=== PATIENT | male | born 1980 | race Caucasian/White ===

== ENCOUNTER 2017-10-20 10:05 | Emergency (ER) | END 2017-10-20 11:29 | disposition home or self-care (01) ==

== ENCOUNTER 2018-09-26 13:01 | Emergency (ER) | payer SELFPAY ==
[~2018-09-26] VITALS: Ht 175.3 cm; Wt 73.5 kg
[~2018-09-26 13:01] MED LIST: CEPH-443 PO; IBUP-1542 PO
[2018-09-26 13:16] VITALS: BP 130/79; PULSE 88; RESP 16; Ht 175.3 cm; Wt 73.5 kg
[2018-09-26] MEDS ORDERED: ONDANSETRON 4 MG INJ IV STA (13:31)
[2018-09-26] MEDS ORDERED: SOD CHLORIDE 0.9% 1,000 ML IV STA (13:31)
[2018-09-26] MEDS ORDERED: KETOROLAC 30 MG INJ IV STA (13:31)
[2018-09-26] MEDS ORDERED: morphine 4 MG/ML VIAL IV STA (13:31)
--- NOTE | 2018-09-26 13:37 | ERD ---
ER Documentation Chief Complaint Chief Complaint lower back pain since yesterday HPI 37-year-old male with history of kidney stones presents with complaint of left flank pain starting yesterday. Patient states that the pain is identical to the pain he experienced when he had a kidney stone 15 years ago. Patient states the pain is currently 8 out of 10 been taking Advil for the pain. Last dose was yesterday. Denies any vomiting, diarrhea, dysuria, hematuria, fevers, chills. States he has been having some nausea. ROS All systems reviewed and are negative except as per history of present illness. Medications Home Meds Active Scripts Ibuprofen* (Motrin*) 600 Mg Tab, 600 MG PO Q6, #30 TAB Prov:ALEYDA GROVER 09/26/18 Ibuprofen* (Motrin*) 600 Mg Tab, 600 MG PO Q6, #30 TAB Prov:ALETA THURMAN PA-C 10/20/17 Cephalexin* (Keflex*) 500 Mg Capsule, 500 MG PO QID for 7 Days, CAP Prov:ALETA THURMAN PA-C 10/20/17 Allergies Allergies: Coded Allergies: No Known Allergy (Unverified , 10/20/17) PMhx/Soc Hx Alcohol Use: Yes Hx Substance Use: No Hx Tobacco Use: Yes FmHx Family History: No diabetes, No coronary disease, No other Physical Exam Vitals Vital Signs Date Temp Pulse Resp B/P (MAP) Pulse Ox O2 O2 Flow FiO2 Time Delivery Rate 09/26/18 97.7 88 16 130/79 97 13:16 (96) Physical Exam Const: No acute distress Head: Atraumatic Eyes: Normal Conjunctiva ENT: Normal External Ears, Nose and Mouth. Neck: Full range of motion. No meningismus. Resp: Clear to auscultation bilaterally Cardio: Regular rate and rhythm, no murmurs Abd: Soft, non tender, non distended. Normal bowel sounds Skin: No petechiae or rashes Back: No midline tenderness. Left-sided CVA tenderness. Full range of motion. No bony deformities or step-off noted. Ext: No cyanosis, or edema Neur: Awake and alert Psych: Normal Mood and Affect Result Diagram: 09/26/18 1349 09/26/18 1349 Results 24 hrs Laboratory Tests Test 09/26/18 13:49 White Blood Count 7.5 10^3/ul Red Blood Count 5.85 10^6/ul Hemoglobin 15.5 g/dl Hematocrit 47.2 % Mean Corpuscular Volume 80.7 fl Mean Corpuscular Hemoglobin 26.5 pg Mean Corpuscular Hemoglobin Concent 32.8 g/dl Red Cell Distribution Width 12.7 % Platelet Count 305 10^3/UL Mean Platelet Volume 9.2 fl Immature Granulocytes % 0.300 % Neutrophils % 65.7 % Lymphocytes % 22.3 % Monocytes % 9.0 % Eosinophils % 1.9 % Basophils % 0.8 % Nucleated Red Blood Cells % 0.0 /100WBC Immature Granulocytes # 0.020 10^3/ul Neutrophils # 4.9 10^3/ul Lymphocytes # 1.7 10^3/ul Monocytes # 0.7 10^3/ul Eosinophils # 0.1 10^3/ul Basophils # 0.1 10^3/ul Nucleated Red Blood Cells # 0.0 10^3/ul Urine Color ALEX Urine Clarity CLEAR Urine pH 5.0 Urine Specific Branscomb 1.030 Urine Ketones NEGATIVE mg/dL Urine Nitrite NEGATIVE mg/dL Urine Bilirubin NEGATIVE mg/dL Urine Urobilinogen NEGATIVE mg/dL Urine Leukocyte Esterase NEGATIVE Patricia/ul Urine Hemoglobin NEGATIVE mg/dL Urine Glucose NEGATIVE mg/dL Urine Total Protein NEGATIVE mg/dl Sodium Level 143 mmol/L Potassium Level 4.1 mmol/L Chloride Level 101 mmol/L Carbon Dioxide Level 30 mmol/L Anion Gap 12 Blood Urea Nitrogen 14 mg/dl Creatinine 0.90 mg/dl Est Glomerular Filtrat Rate mL/min > 60 mL/min Glucose Level 110 mg/dl Calcium Level 10.1 mg/dl Total Bilirubin 0.5 mg/dl Direct Bilirubin 0.00 mg/dl Indirect Bilirubin 0.5 mg/dl Aspartate Amino Transf (AST/SGOT) 62 IU/L Alanine Aminotransferase (ALT/SGPT) 96 IU/L Alkaline Phosphatase 65 IU/L Total Protein 8.1 g/dl Albumin 4.8 g/dl Globulin 3.30 g/dl Albumin/Globulin Ratio 1.45 Lipase 50 U/L Current Medications Medications Dose Sig/Rebecca Start Time Status Last (Trade) Ordered Route PRN Stop Time Admin Dose Reason Admin Sodium 1,000 ml @ Q1H STAT 09/26/18 09/26/18 Chloride 1,000 mls/hr IV 13:31 09/26/18 13:47 14:30 Morphine 4 mg ONCE STAT 09/26/18 DC 09/26/18 Sulfate IV 13:31 09/26/18 13:47 (morphine) 13:33 Ondansetron 4 mg ONCE STAT 09/26/18 DC 09/26/18 HCl (Zofran IV 13:31 09/26/18 13:48 Inj) 13:33 Ketorolac 30 mg ONCE STAT 09/26/18 DC 09/26/18 Tromethamine IV 13:31 09/26/18 13:47 (Toradol) 13:33 Procedures/MDM DIAGNOSTIC IMAGING REPORT Patient: YOLANDA TAY : 1980 Age: 37 Sex: M MR #: [id number] DOS: 09/26/18 1331 Ordering MD: ALEYDA GROVER Location: [facility] [place] Room/Bed: PROCEDURE: CT Abdomen and Pelvis Without Intravenous Contrast CLINICAL INDICATION: Abdominal Pain TECHNIQUE: Axial computed tomography images of the abdomen and pelvis without intravenous contrast. Sagittal and coronal reformatted images were created and reviewed. CTDIvol (mGy) = 8.7; total DLP (mGy-cm) = 501.8. This CT exam was performed using one or more of the following dose reduction techniques: automated exposure control, adjustment of the mA and/or kV according to patient size, and/or use of iterative reconstruction technique. DICOM images are available. COMPARISON: None FINDINGS: LIMITATIONS: Lack of IV and oral contrast limits sensitivity of exam. LUNG BASES: Normal. No mass. No consolidation. ABDOMEN: LIVER: Mild hepatic steatosis. GALLBLADDER AND BILE DUCTS: Normal. No calcified stones. No ductal dilation. PANCREAS: Normal. No ductal dilation. SPLEEN: Normal. No splenomegaly. ADRENALS: Normal. No mass. KIDNEYS AND URETERS: Normal. No obstructing stones. No hydronephrosis. STOMACH AND BOWEL: Normal. No obstruction. No mucosal thickening. PELVIS: APPENDIX: No findings to suggest acute appendicitis. BLADDER: Normal. No stones. REPRODUCTIVE: Unremarkable as visualized. ABDOMEN and PELVIS: INTRAPERITONEAL SPACE: Normal. No free air. No significant fluid collection. BONES/JOINTS: No acute fracture. No dislocation. SOFT TISSUES: Normal. VASCULATURE: Normal. No abdominal aortic aneurysm. LYMPH NODES: Normal. No enlarged lymph nodes. IMPRESSION: 1. Mild hepatic steatosis. 2. Otherwise unremarkable noncontrast CT abdomen and pelvis without acute pathology identified. RPTAT:GG .Jorge Ricci MD, MD Date Time Electronically viewed and signed by .Jorge Ricci MD, MD on 09/26/2018 14:21 .L/ CC: ALEYDA GROVER [phone] MDM: Given patient's history of kidney stones there is concern for possible stone at this time, especially since patient stated that the pain was identical to the pain he had previously experienced with kidney stone. CT without contrast was ordered but results within normal limits. Additional lab work was within normal limits. Patient denied any dysuria and his urine was within normal limits I will not be treating him for Rohit. Advised patient to follow-up with his primary and take ibuprofen as needed for pain. I have low suspicion for acute coronary syndrome, AAA, mesenteric ischemia, lower lobe pneumonia, DKA, bowel perforation, cholecystitis, choledocholithiasis, ascending cholangitis, hepatic abscess, pancreatitis, PUD, splenic rupture, diverticulitis, pyelonephritis, nephrolithiasis, appendicitis, [testicular torsion], At this time, patient is stable for discharge and outpatient management. I have instructed the patient to follow-up with his/her primary care physician in 1-2 days. I have discussed with the patient the possibility of needing to see a specialist for further workup and imaging studies if symptoms persist. I have instructed the patient to promptly return to the ER for any new or worsening symptoms including but not limited to increased pain, fever, nausea, vomiting, weakness or LOC. The patient and/or family expressed understanding of and agreement with this plan. All questions were answered. Home care instructions were provided. DISCLAIMER: Inadvertent spelling and grammatical errors are likely due to EHR/dictation software use and do not reflect on the overall quality of patient care. Also, please note that the electronic time recorded on this note does not necessarily reflect the actual time of the patient encounter. . Departure Diagnosis: Primary Impression: Flank pain Condition: Stable ALEYDA GROVER Sep 26, 2018 13:37
[2018-09-26] MEDS ORDERED: IBUP-1542 PO (14:26)
== END 2018-09-26 14:53 | disposition home or self-care (01) ==
LOC: FTE 13:01
DX: R10.9 Unspecified abdominal pain (principal); Z87.891 Personal history of nicotine dependence
CPT/HCPCS: 36415; 74176; 80053; 81003; 83690; 85025; 96361; 96374; 96375; 99285; J1885; J2270; J2405; J7030